=== PATIENT | male | born 1970 | race Caucasian/White ===

== ENCOUNTER 2021-03-11 22:35 | Inpatient (IN) | payer BC, SELFPAY ==
--- NOTE | ~2021-03-11 | XR_ITS ---
EXAMINATION: XR chest 2V EXAM DATE: 03/11/2021 22:59 INDICATION: Midsternal chest pain. TECHNIQUE: Frontal and lateral projections of the chest obtained and reviewed. There is no prior jerzy dy for comparison. FINDINGS: The lungs are clear. There are no pleural effusions. The cardiomediastinal silhouette is within normal limits. There is no pneumothorax suspected. The bones and soft tissues are unremarkab le. IMPRESSION: No acute cardiopulmonary findings. Reviewed, dictated and finalized at location G.
--- NOTE | 2021-03-11 22:41 | ECG_ITS ---
Measurements Intervals [place] Rate: 109 P: 23 CA: 158 QRS: 39 QRSD: 90 T: 29 QT: 319 QTc: 430 Interpretive Statements SINUS TACHYCARDIA CANNOT RULE OUT SEPTAL INFARCT, AGE INDETERMINATE ABNORMAL ECG Electronically Signed On 03-12-2021 7:03:28 CDT by Edison Valladares D.O.
[2021-03-11 22:49] VITALS: BP 187/101; PULSE 107; RESP 20; TEMP 36.6; O2SAT 99
--- NOTE | 2021-03-11 22:55 | PC.NURSE ---
Patient taken to xray.
[2021-03-11 23:09] LABS: Basophils Absolute Auto 0.1 K/mm3 (0.0-0.1); Basophils Percent Auto 0.9 % (0.2-1.2); Eosinophils Absolute Auto 0.2 K/mm3 (0-0.3); Eosinophils Percent Auto 2.4 % (0-4.4); Hematocrit 46.4 % (42.0-52.0); Hemoglobin 15.7 g/dL (14.0-18.0); Immature Granulocyte Absolute 0.05 K/mm3 (0.00-0.031); Immature Granulocyte Percent A 0.6 % (0-0.5); Lymphocytes Percent Auto 27.6 % (18.3-44.2); Mean Corpuscular HGB Conc 33.8 g/dl (32-36); Mean Corpuscular Hemoglobin 29.9 pg (26-34); Mean Corpuscular Volume 88.4 fl (80-100); Mean Platelet Volume 8.9 fl (7.4-10.4); Monocytes Absolute Auto 0.7 K/mm3 (0.1-0.6); Monocytes Percent Auto 9.1 % (2.6-8.5); Neutrophils Absolute Auto 4.7 K/mm3 (1.3-6.7); Neutrophils Percent Auto 59.4 % (45.5-73.1); Platelet Count Result 306 k/mm3 (150-375); Red Blood Count 5.25 M/mm3 (4.6-6.20); Red Cell Distribution Width 12.7 % (11.5-14.5)
[2021-03-11 23:18] LABS: Anion Gap 13 mmol/L (8-16); Blood Urea Nitrogen 16 mg/dL (9-20); Calcium 9.8 mg/dL (8.4-10.2); Carbon Dioxide 24 mmol/L (22-30); Chloride 99 mmol/L (98-107); Estimated CRCL calculation 97 ml/min; Estimated Glomerular Filt Rate > 60; Glucose 396 mg/dL (65-110); Potassium 4.1 mmol/L (3.4-5.0); Sodium 136 mmol/L (137-145)
[2021-03-11 23:21] LABS: INR 0.9; Partial Thromboplastin Time 22.2 SECONDS (22.3-36.8); Prothrombin Time 11.6 Seconds (11.1-14.7)
[2021-03-11 23:30] LABS: Troponin I 0.017 ng/mL (0.000-0.034)
[2021-03-12] VITALS (21 sets, daily range): BP systolic 119–170; BP diastolic 74–101; PULSE 74–121; RESP 12–21; TEMP 35.9–36.9; O2SAT 94–99
[2021-03-12 03:23] LABS: Troponin I 0.102 ng/mL (0.000-0.034)
--- NOTE | 2021-03-12 04:01 | ED.CHESTPAIN ---
HPI - Chest Pain General Chief Complaint: Chest Pain Stated Complaint: chest pain since yesterday Time Seen by Provider: 03/12/21 03:27 Source: patient and RN notes reviewed Mode of arrival: ambulatory Limitations: no limitations History of Present Illness HPI narrative: This is a 51 year old male with history DM who presents for evaluation of midsternal chest pain. Patient developed pain while he was mowing his lawn. He states his pain subsided once he went inside to rest. He has continued to have intermittent pain throughout Sunday and Sunday morning. His pain is worse with exertion. He reports he currently has 5/10 pain currently. His pain does not radiate. He denies nausea, vomiting, dizziness or shortness of breath. He reports previous history of diabetes but he has not taken medication in years. He has not seen a primary care physician in years. Related Data Home Medications Medication Instructions Recorded Confirmed No Home Medications 03/11/21 03/11/21 Allergies Allergy/AdvReac Type Severity Reaction Status Date / Time No Known Allergies Allergy Mild Verified 03/12/21 04:30 Review of Systems Review of Systems: All systems reviewed & are unremarkable except as noted in HPI and below PMFSH Past Medical History Medical History (Updated 03/12/21 @ 07:21 by Dianne Lion MD) Diabetes mellitus Surgical History Surgical History (Updated 03/12/21 @ 04:04 by Dianne Lion MD) No pertinent past surgical history Family History Family History (Updated 04/16/14 @ 07:13 by DOCTOR UNKNOWN) Father Hypertension Mother Family history of malignant neoplasm Social History Social History Smoking status: Never smoker Alcohol intake: current Exam Const: General: no acute distress and alert Orientation/consciousness: patient oriented x3 Eyes: EOM: EOMs intact bilaterally Resp: Effort & Inspection: normal respiratory effort and no retractions Auscultation: clear to auscultation bilaterally Cardio: Rate: regular rate Rhythm: regular rhythm Heart sounds: no murmurs GI: GI Palp: Yes Soft to palpation, No Tenderness to palpation present (GI) and No Guarding due to palpation present (GI) Auscultation: normal bowel sounds Skin: General skin exam: normal color Rashes: no rashes Neuro: General: patient oriented x3, moves all extremities and CN's II-XI intact bilaterally Psych: Mental Status: mental status grossly normal Affect: normal affect Course Reevaluation(s) Reevaluation #1: I discussed case with Dr. Spears. She accepts care to IMU. Will repeat glucose. She agrees with starting maintenance IVF . Patient may be dehydrated from his hyperglycemia. BS has decreased since arrival to [facility]. Date: 03/12/21 Time: 05:12 Consultations Consultation #1: I spoke with Dr. Lema and he agrees to consult. He recommends starting on heparin. Given metoprolol 25 mg now and then q 6hours with daily aspirin 81 mg. Date: 03/12/21 Time: 05:00 Vital Signs Vital signs: Vital Signs Temperature 97.8 F 03/11/21 22:49 Pulse Rate 107 H 03/11/21 22:49 Respiratory Rate 20 03/11/21 22:49 Blood Pressure 187/101 H 03/11/21 22:49 Pulse Oximetry 99 03/11/21 22:49 Temperature 96.7 F L 03/12/21 06:50 Pulse Rate 85 03/12/21 06:50 Respiratory Rate 20 03/12/21 06:50 Blood Pressure 156/84 H 03/12/21 06:50 Pulse Oximetry 99 03/12/21 06:50 MDM - Chest Pain Lab Data Attestation: I reviewed the patient's lab results. Result diagrams: 03/11/21 22:48 03/11/21 22:48 Labs: Lab Results 03/11/21 03/11/21 03/11/21 Range/Units 22:48 22:48 22:48 WBC 8.0 (4.5-10.0) K/mm3 RBC 5.25 (4.6-6.20) M/mm3 Hgb 15.7 (14.0-18.0) g/dL Hct 46.4 (42.0-52.0) % MCV 88.4 (80-100) fl MCH 29.9 (26-34) pg MCHC 33.8 (32-36) g/dl RDW 12.7 (11.5-14.5) % Plt Count 306 (150-375) k/mm3 MPV 8.9 (
[2021-03-12] MEDS: ASPIRIN 81 MG CHEWABLE TABLET 324 MG PO (04:31)
[2021-03-12] MEDS: NITROGLYCERIN SL 0.4 MG TABLET SUBLINGUAL (04:33)
--- NOTE | 2021-03-12 04:38 | PC.NURSE ---
2nd dose 0.4mg SL nitro held at this time. Pt rates pain 0/10. BP 144/99.
--- NOTE | 2021-03-12 04:41 | PC.NURSE ---
Pt c/o 2/10 chest pain and racing heart. 2nd dose 0.4mg SL nitro given at this time.
--- NOTE | 2021-03-12 04:48 | PC.NURSE ---
3rd dose SL nitro given at this time. Pt rtes CP 08/29. VSS.
[2021-03-12] MEDS: METOPROLOL TARTRATE 50 MG TAB 25 MG PO (05:20)
[2021-03-12] MEDS: HEPARIN SODIUM 5,000 UNITS/ML VIAL 4000 UNITS IV PUSH ×3 (05:26→20:47)
[2021-03-12] MEDS: HEPARIN SOD/D5W 100 UNITS/ML 25,000 UNITS/250 ML BAG 10 UNITS IV CONT (05:26)
[2021-03-12 05:44] LABS: Glucose Point of Care 266 mg/dl (65-105)
--- NOTE | 2021-03-12 06:47 | ADMGEN ---
This patient, Ja Mendoza, was admitted to IMU Room 201-01 at 0647. Patient/family oriented to hospital policies and general routines including ID bracelet, bed and alarms, visiting hours, pain management, procedures, bathroom and other care routines, personal items, smoking policy, room service/diet, and visiting hours. Information on how to activate the Rapid Response Team has been discussed. Patient/Family are encouraged to report perceived risks to care and to ask questions if they do not understand what they are told or what they should do.
[2021-03-12 07:34] LABS: Hemoglobin A1C 11.2 % (<5.7)
[2021-03-12 07:35] LABS: Glucose Point of Care 248 mg/dl (65-105)
[2021-03-12 07:45] LABS: Cholesterol 250 mg/dL (0-200); HDL Direct 52 mg/dL; Triglycerides 116 mg/dL (<150)
[2021-03-12 07:56] LABS: LDL Cholesterol Direct 161 mg/dL
[2021-03-12 08:06] LABS: Troponin I 0.246 ng/mL (0.000-0.034)
[2021-03-12] MEDS: ASPIRIN 81 MG CHEWABLE TABLET PO (08:12)
[2021-03-12] MEDS: METOPROLOL TARTRATE 25 MG TABLET PO ×4 (08:12→23:51)
[2021-03-12] MEDS: NITROGLYCERIN OINTMENT 1 INCH DOSE TRANSDERM ×4 (08:13→23:51)
[2021-03-12] MEDS: SODIUM CHLORIDE 0.9% IV 1,000 ML 125 ML IV CONT ×3 (08:14→23:52)
--- NOTE | 2021-03-12 08:48 | PM.IMHP ---
H&P: HPI History of Present Illness Date/Time: 03/12/21 08:48 Chief Complaint: Mr. Mendoza is a 51 year old man with a past medical history significant for DM type II and former smoker who presented to the ED last evening with a complaint of intermitent substernal chest pain since . 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 He tells me his symptoms improved with rest. He denied any similar episodes in the past. He tells me he experienced the same feeling yesterday while he was working if he was outside. He also reports some diaphoresis while in the ED. He denied any CHANDLER, dizziness, cough, SOB, palpitations or radiation. He has not seen his PCP in a couple of years due to non adherence with appointments. He was on metformin in the past but hasn't taken any in more than one year. During interview and exam he denied any CHANDLER, dizziness, CP, SOB, N/V or abdominal pain. ED evaluation included and revealed: Initial troponin was not elevated, however repeat showed elevated troponin at 0.246; BP elevated at 187/100. ECG showed ST; CXR with no acute disease. BG 396. He was give full dose ASA, NTG, metoprolol and heparin drip was initiated. Cardiology was consulted by the ED. He has been admitted for further evaluation and treatment. Review of Systems Review of Systems: All systems reviewed & are unremarkable except as noted in HPI and below [facility] Past Medical History Medical History Diabetes mellitus Surgical History Surgical History No pertinent past surgical history Family History Family History Father Hypertension Mother Family history of malignant neoplasm Social History Social History Smoking status: Former smoker Additional smoking assessment comments: 2 packs per week Alcohol intake: never Substance use: never Spiritual care concerns: No Meds Home Medications and Allergies Home Medications Medication Instructions Recorded Confirmed Type No Home Medications 03/11/21 03/11/21 History Allergies Allergy/AdvReac Type Severity Reaction Status Date / Time No Known Allergies Allergy Mild Verified 03/12/21 08:29 Vital Signs Vital Signs - 24 hr 03/11/21 22:49 03/12/21 02:36 03/12/21 03:30 Temperature 36.6 C 36.7 C Pulse Rate 107 H 105 H 88 Respiratory Rate 20 18 15 Blood Pressure 187/101 H 170/99 H 143/100 H Pulse Oximetry 99 99 98 03/12/21 04:32 03/12/21 04:39 03/12/21 04:48 Temperature Pulse Rate 114 H 121 H 116 H Respiratory Rate 20 21 H 16 Blood Pressure 159/101 H 144/99 H 140/94 H Pulse Oximetry 99 98 03/12/21 04:56 03/12/21 05:20 03/12/21 06:12 Temperature Pulse Rate 121 H 101 H 92 Respiratory Rate 19 19 Blood Pressure 139/89 137/80 Pulse Oximetry 97 03/12/21 06:40 03/12/21 06:50 03/12/21 08:00 Temperature 35.9 C L 36.1 C L Pulse Rate 85 85 89 Respiratory Rate 12 20 18 Blood Pressure 119/74 156/84 H 147/90 H Pulse Oximetry 95 99 97 03/12/21 08:12 Temperature Pulse Rate 94 Respiratory Rate Blood Pressure Pulse Oximetry Exam Const: General: no acute distress, alert and awake Orientation/consciousness: patient oriented x3 HENMT: Head: normocephalic and atraumatic Ears: hearing grossly normal bilaterally and external ears normal Face and sinus: face symmetric Mouth: Yes Normal oral and palatal mucosa present Eyes: Pupils: Equal, round and reactive pupils present EOM: EOMs intact bilaterally Neck: Neck: full ROM, trachea midline and no JVD Thyroid: thyroid normal Chest: Chest palpation & inspection: normal inspection of the chest Resp: Effort & Inspection: normal respiratory effort Auscultation: clear to auscultation bilaterally Cardio: Jugular v
--- NOTE | 2021-03-12 10:54 | PM.CNCAR ---
Assessment and Plan Assessment and plan (1) Non-ST elevation [place] (NSTEMI): Code(s): I21.4 - Non-ST elevation (NSTEMI) myocardial infarction Status: Acute Assessment and Plan: Patient is a 51-year-old white man with history of hypertension, diabetes mellitus type 2, distant tobacco dependence (2 packs per week), medical noncompliance, who was seen in cardiac consultation for chief complaint of chest pain. - patient reports a 2 day history of intermittent exertional chest pain, relieved with rest and relieved with nitroglycerin. Chest pain currently resolved. - He has been noncompliant with management his diabetes mellitus and hypertension and presents with marked hyperglycemia and with hypertensive urgency. - Peak troponin I so far is 0.513 and will continue to trend. - EKG without evidence of acute injury. - Continue aspirin. - continue intravenous heparin for at least 48 hours or until left heart catheterization pending clinical course, with consideration of Plavix following left heart catheterization results. - improved blood pressure and heart rate control with addition of metoprolol tartrate 25 mg po q.6 hours. - Began rosuvastatin 40 mg nightly for LDL elevated at 161 this admission, in the setting of his diabetes mellitus and non ST elevation myocardial infarction. - Obtain echo to evaluate cardiac structure and function. -given his poorly controlled diabetes mellitus and poorly controlled hypertension, with significant troponin elevation this admission, in the context of exertional chest pain relieved with rest and with nitroglycerin, anticipate need for left heart catheterization for definitive evaluation for coronary artery disease this admission, pending continued improvement in his glucose and overall clinical status. (2) Hypertension: Code(s): I10 - Essential (primary) hypertension Status: Acute Assessment and Plan: - he had hypertensive urgency on presentation with a presenting blood pressure 187/101, with subsequent improvement to mild elevation. - improved blood pressure and heart rate control with addition of metoprolol tartrate 25 mg po q.6 hours. - TSH normal this admission. (3) Hyperglycemia: Code(s): R73.9 - Hyperglycemia, unspecified Status: Acute Assessment and Plan: -He has significant hyperglycemia noted this admission in the setting of noncompliance with his diabetic regimen. -presenting glucose was 396 and hemoglobin A1c 11.2%. -careful monitoring and management his diabetes mellitus as per primary service. (4) Hyperlipidemia associated with type 2 diabetes mellitus: Code(s): E11.69 - Type 2 diabetes mellitus with other specified complication; E78.5 - Hyperlipidemia, unspecified Status: Acute Assessment and Plan: - Began rosuvastatin 40 mg nightly for LDL elevated at 161 this admission, in the setting of his diabetes mellitus and non ST elevation myocardial infarction. History of Present Illness History of Present Illness Consult date/time: 03/12/21 10:54 Patient is a 51-year-old white man with history of hypertension, diabetes mellitus type 2, distant tobacco dependence (2 packs per week), medical noncompliance, who was seen in cardiac consultation for chief complaint of chest pain. Patient reports onset of exertional chest pain for 2 days intermittent up to 30 minutes at a time. Chest discomfort initially began two days prior to admission when he was mowing his lawn and improved with rest. He had recurrence of the chest discomfort on the day prior to admission when he was active at work, with chest pain also relieved at rest. He reports his chest discomfort was a tightness in the midsternum without radiation with some associated mild dyspnea and diaphoresis but no nausea. In the Emergency department, his chest pain improved following 3 nitroglycerin tablets sublingually. Patient denies any chest pain at present. Denies any edema, orthopnea
--- NOTE | 2021-03-12 11:09 | ECG_ITS ---
Measurements Intervals [place] Rate: 84 P: 48 ND: 157 QRS: 59 QRSD: 94 T: 67 QT: 361 QTc: 429 Interpretive Statements SINUS RHYTHM BASELINE WANDER- V2, V4 NORMAL ECG Electronically Signed On 03-12-2021 17:05:17 CDT by Edison Valladares D.O.
--- NOTE | 2021-03-12 11:19 | ECHO_ITS ---
Patient Info Name: Ja Mendoza Age: 51 years : 1970 Gender: Male Ht: 69 in Wt: 250 lbs BSA: 2.40 m2 HR: 83 bpm BP: 147 / 90 mmHg Technical Quality: Fair Exam Date: 03/12/2021 1:43 PM Exam Location: [facility] Patient Status: Inpatient Admit Date: 03/12/2021 Staff Ordering Physician: Anival Lema MD Signalling And Communications Engineer: Aleksandra Gil RDCS Attending Provider: Mar Spears DO Referring Physician: Pita ESPINAL; Exam Type: CA echo dop color flow w con Study Info Complete two-dimensional, color flow and Doppler transthoracic echocardiogram is performed with contrast to opacify the left ventricle and to improve the deliniation of the left ventricle endocardial borders. Contrast/Agitated Saline Contrast/Ag. Saline: Definity Amount: 4.00 ml Summary 1. Technically difficult study with limited views. 2. Left ventricular chamber dimension is normal. 3. Left ventricular wall thickness is normal. 4. Left ventricular systolic function is normal with an ejection fraction by Biplane Method of Discs of 62 %. 5. Mild hypokinesis of the apical anterior left ventricular wall(s). 6. Right ventricular systolic function is normal. Recommendations * No prior study available for comparison. Left Ventricle Left ventricular chamber dimension is normal. Left ventricular wall thickness is normal. Left ventricular systolic function is normal with an ejection fraction by Biplane Method of Discs of 62 %. Normal diastolic function for age. Mild hypokinesis of the apical anterior left ventricular wall(s). Right Ventricle Right ventricular chamber dimension is normal. Right ventricular systolic function is normal. Ventricular Septum Intact interventricular septum visualized by 2D imaging. Left Atria Left atrial chamber dimension is normal. Right Atria Right atrial chamber dimension is normal. Aortic Valve Aortic valve is not well visualized. There is no aortic valve stenosis. There is no aortic valve regurgitation. The aortic valve is probable trileaflet. Pulmonic Valve Pulmonary valve is not well visualized. There is trace pulmonic regurgitation. There is no pulmonic valve stenosis. Mitral Valve There is mild mitral valve regurgitation. There is no mitral valve stenosis. Mitral valve is structurally and functionally normal to two-dimensional, color flow Doppler and Doppler interrogation. Tricuspid Valve The tricuspid valve is not well visualized. There is mild tricuspid valve regurgitation. There is no significant tricuspid valve stenosis. Pericardium/Pleural There is no pericardial effusion. Inferior Vena Cava Inferior vena cava is not well visualized. Aorta The aortic root size at the sinus of Valsalva is normal. Left Ventricular Outflow Tract Name Value Normal LVOT Doppler LVOT Peak Gradient 7 mmHg LVOT Mean Gradient 3 mmHg LVOT VTI 23.15 cm LVOT VTI/AV VTI Ratio 0.85 Pulmonic Valve Name Value Normal ----
[2021-03-12 11:56] LABS: Partial Thromboplastin Time 29.5 SECONDS (22.3-36.8)
[2021-03-12 12:12] LABS: Troponin I 0.513 ng/mL (0.000-0.034)
[2021-03-12 12:33] LABS: Glucose Point of Care 228 mg/dl (65-105)
[2021-03-12 12:43] LABS: Alanine Aminotransferase 35 U/L (4-50); Albumin Level 4.4 g/dL (3.5-5.1); Alkaline Phosphatase 74 U/L (38-126); Anion Gap 11 mmol/L (8-16); Aspartate Amino Transferase 27 U/L (17-59); Bilirubin,Total 0.7 mg/dL (0.2-1.3); Blood Urea Nitrogen 15 mg/dL (9-20); Calcium 9.6 mg/dL (8.4-10.2); Carbon Dioxide 25 mmol/L (22-30); Chloride 101 mmol/L (98-107); Estimated CRCL calculation 119 ml/min; Estimated Glomerular Filt Rate > 60; Glucose 241 mg/dL (65-110); Potassium 4.2 mmol/L (3.4-5.0); Sodium 137 mmol/L (137-145)
[2021-03-12] MEDS: INSULIN ASPART (*BKC) 100 UNITS/ML SUB-Q ×2 (13:03→17:21)
[2021-03-12] MEDS: ACETAMINOPHEN 325 MG TABLET 650 MG PO (17:02)
[2021-03-12 17:09] LABS: Glucose Point of Care 247 mg/dl (65-105)
[2021-03-12 18:31] LABS: Troponin I 0.528 ng/mL (0.000-0.034)
[2021-03-12 19:50] LABS: Partial Thromboplastin Time 39.5 SECONDS (22.3-36.8)
[2021-03-12 21:06] LABS: Glucose Point of Care 248 mg/dl (65-105)
[2021-03-12] MEDS: INSULIN GLARGINE (*BKC) 100 UNITS/ML 15 UNITS SUB-Q (22:39)
[2021-03-12] MEDS: ROSUVASTATIN 10 MG TABLET 40 MG PO (22:39)
[2021-03-12] MEDS: HEPARIN SOD/D5W 100 UNITS/ML 25,000 UNITS/250 ML BAG 18 UNITS IV CONT (23:53)
[2021-03-13] VITALS (21 sets, daily range): BP systolic 122–143; BP diastolic 74–89; PULSE 67–95; RESP 18–20; TEMP 35.9–36.7; O2SAT 96–99
[2021-03-13 00:56] LABS: Troponin I 0.463 ng/mL (0.000-0.034)
[2021-03-13 03:43] LABS: Basophils Percent Auto 0.5 % (0.2-1.2); Eosinophils Absolute Auto 0.2 K/mm3 (0-0.3); Eosinophils Percent Auto 2.5 % (0-4.4); Hematocrit 42.1 % (42.0-52.0); Hemoglobin 13.7 g/dL (14.0-18.0); Immature Granulocyte Absolute 0.05 K/mm3 (0.00-0.031); Immature Granulocyte Percent A 0.6 % (0-0.5); Lymphocytes Absolute Auto 2.84 K/mm3 (0.9-3.2); Lymphocytes Percent Auto 32.2 % (18.3-44.2); Mean Corpuscular HGB Conc 32.5 g/dl (32-36); Mean Corpuscular Hemoglobin 29.5 pg (26-34); Mean Corpuscular Volume 90.5 fl (80-100); Mean Platelet Volume 8.7 fl (7.4-10.4); Monocytes Absolute Auto 0.7 K/mm3 (0.1-0.6); Monocytes Percent Auto 8.2 % (2.6-8.5); Platelet Count Result 272 k/mm3 (150-375); Red Blood Count 4.65 M/mm3 (4.6-6.20); Red Cell Distribution Width 13.1 % (11.5-14.5); White Blood Count 8.8 K/mm3 (4.5-10.0)
[2021-03-13 03:53] LABS: Anion Gap 5 mmol/L (8-16); Blood Urea Nitrogen 15 mg/dL (9-20); Calcium 8.7 mg/dL (8.4-10.2); Carbon Dioxide 27 mmol/L (22-30); Chloride 104 mmol/L (98-107); Estimated CRCL calculation 107 ml/min; Estimated Glomerular Filt Rate > 60; Glucose 252 mg/dL (65-110); Magnesium 1.9 mg/dL (1.6-2.3); Potassium 4.6 mmol/L (3.4-5.0); Sodium 136 mmol/L (137-145)
[2021-03-13 04:13] LABS: Troponin I 0.457 ng/mL (0.000-0.034)
[2021-03-13] MEDS: METOPROLOL TARTRATE 25 MG TABLET PO ×4 (06:30→23:30)
[2021-03-13] MEDS: NITROGLYCERIN OINTMENT 1 INCH DOSE TRANSDERM ×4 (06:31→23:31)
[2021-03-13] MEDS: SODIUM CHLORIDE 0.9% IV 1,000 ML 125 ML IV CONT (07:42)
[2021-03-13 08:16] LABS: Glucose Point of Care 217 mg/dl (65-105)
[2021-03-13] MEDS: INSULIN ASPART (*BKC) 100 UNITS/ML SUB-Q ×3 (08:32→17:38)
[2021-03-13] MEDS: ASPIRIN 81 MG CHEWABLE TABLET PO (08:36)
--- NOTE | 2021-03-13 08:53 | WPDPN ---
Progress Note: A&P Assessment and Plan (1) Non-ST elevation [place] (NSTEMI): Code(s): I21.4 - Non-ST elevation (NSTEMI) myocardial infarction Status: Acute Assessment and Plan: elevated troponin at 0.513>0.528>0.457 Heparin gtt until cardiac catheterization today with will consider Plavix following left cardiac catheterization Cardiology consulted, recommendations appreciated Continue ASA, BB, NTG start rosuvastatin 40 mg daily LDL at 161 Tele monitoring (2) Hypertension: Code(s): I10 - Essential (primary) hypertension Status: Acute Assessment and Plan: Improved patient noncompliance continue metoprolol and nitro cardiology consulted vital signs is ordered will adjust medication as needed (3) Hyperglycemia: Code(s): R73.9 - Hyperglycemia, unspecified Status: Acute Assessment and Plan: Hx of DM type II blood sugar less than 300 patient noncompliance Hgb A1c 11.2 continue SSI, accuchecks and Accu-Chek, increase sliding scale from moderate to diabetic Education will adjust medication as needed continue diabetic diet Subjective Date/time seen: 03/13/21 08:53 patient night was uneventful. Patient was able to tolerate meals and slept well overnight and denies pain. The patient denies SOB, CP, palpitation, extremity numbness, lightheadedness, dizziness, constipation, diarrhea, chills, or fever. Review of Systems Review of Systems: Narrative: A 14 organ system Review of Systems was performed and pertinent positives included in the HPI, otherwise remaining ROS is negative. All systems reviewed & are unremarkable except as noted in HPI and below Exam Narrative: Exam Narrative: GENERAL: This is a well-nourished, well-developed patient, in no apparent distress. HEAD: normocephalic, atraumatic. EYES: PERRL. Sclera clear/white. Vision is grossly intact. EARS: External ears normal, auditory canals clear and without drainage, TMs normal without perforation. Hearing grossly intact. NOSE: External nose normal with no obvious nasal discharge, nares without redness, no rhinorrhea. THROAT: Mucous membranes moist, posterior pharynx clear. NECK: Neck supple, non-tender without lymphadenopathy, masses or thyromegaly. CARDIOVASCULAR: Regular rate and rhythm without murmurs, gallops, or rubs. RESPIRATORY: Clear to auscultation. Breath sounds equal bilaterally. No wheezes, rales, or rhonchi. GASTROINTESTINAL: Abdomen soft, non-tender, nondistended. Bowel sounds are active. No hepato-splenomegaly, or palpable masses. No guarding. SKIN: warm, intact with no suspicious lesions or rash, good texture and turgor. NEURO: awake, alert, and oriented to person, place and time. There were no obvious focal neurologic abnormalities. Steady gait EXTREMITIES: Normal range of motion. No edema. No calf tenderness. Negative Homans sign bilaterally. BACK: Nontender without deformity or crepitance. No flank tenderness. Objective Data Vital Signs Vital Signs: Vital Signs - 24 hr 03/12/21 12:00 03/12/21 13:06 03/12/21 14:00 Temperature 98.1 F Pulse Rate 80 91 82 Respiratory Rate 18 Blood Pressure 136/88 Pulse Oximetry 95 03/12/21 16:00 03/12/21 17:22 03/12/21 18:00 Temperature 98.4 F Pulse Rate 74 78 83 Respiratory Rate 20 Blood Pressure 133/90 Pulse Oximetry 94 03/12/21 20:00 03/12/21 22:00 03/12/21 23:51 Temperature 97.4 F L Pulse Rate 77 74 77 Respiratory Rate 20 Blood Pressure 142/91 H Pulse Oximetry 98 03/13/21 00:00 03/13/21 02:00 03/13/21 04:00 Temperature 97.1 F L 97.4 F L Pulse Rate 79 70 67 Respiratory Rate 20 20 Blood Pressure 122/75 127/77 Pulse Oximetry 98 96 03/13/21 06:00 03/13/21 06:30 03/13/21 07:19 Temperature 97.6 F Pulse Rate 69 88 74 Respiratory Rate 20 Blood Pressure 130/74 Pulse Oximetry 99 Intake/Output Intake/Output: Intake & Output
[2021-03-13 10:02] LABS: Partial Thromboplastin Time 59.8 SECONDS (22.3-36.8)
[2021-03-13] MEDS: HEPARIN SODIUM 5,000 UNITS/ML VIAL 3500 UNITS IV PUSH ×2 (10:15→17:39)
[2021-03-13 11:52] LABS: Glucose Point of Care 222 mg/dl (65-105)
--- NOTE | 2021-03-13 12:14 | PM.PNCARD ---
Progress Note: A&P Assessment and Plan (1) Non-ST elevation [place] (NSTEMI): Code(s): I21.4 - Non-ST elevation (NSTEMI) myocardial infarction Status: Acute Assessment and Plan: Patient is a 51-year-old white man with history of hypertension, diabetes mellitus type 2, distant tobacco dependence (2 packs per week), medical noncompliance, who was seen in cardiac consultation for chief complaint of chest pain. - patient reports a 2 day history of intermittent exertional chest pain, relieved with rest and relieved with nitroglycerin. Chest pain currently resolved. - He has been noncompliant with management his diabetes mellitus and hypertension and presents with marked hyperglycemia and with hypertensive urgency. - Peak troponin I was 0.528. - EKG without evidence of acute injury. - Continue aspirin. - Given occasional chest pain with minimal activity lasting 1 minutes or less, continue intravenous heparin until left heart catheterization 03/14/21 at approximately 2:[address] Kameron Dial, with consideration of Plavix following left heart catheterization results. - improved blood pressure and heart rate control with addition of metoprolol tartrate 25 mg po q.6 hours. - Began rosuvastatin 40 mg nightly for LDL elevated at 161 this admission, in the setting of his diabetes mellitus and non ST elevation myocardial infarction. - Obtained echo 03/13/21: 1. Technically difficult study with limited views. 2. Left ventricular chamber dimension is normal. 3. Left ventricular wall thickness is normal. 4. Left ventricular systolic function is normal with an ejection fraction by Biplane Method of Discs of 62 %. 5. Mild hypokinesis of the apical anterior left ventricular wall(s). 6. Right ventricular systolic function is normal. -given his poorly controlled diabetes mellitus and poorly controlled hypertension, with significant troponin elevation to 0.528 this admission and mild hypokinesis of the apical anterior left ventricular wall on echo, in the context of exertional chest pain relieved with rest and with nitroglycerin, scheduled left heart catheterization for definitive evaluation for coronary artery disease for 03/14/21 at approximately [address] Kameron Dawson. (2) Hypertension: Code(s): I10 - Essential (primary) hypertension Status: Acute Assessment and Plan: - he had hypertensive urgency on presentation with a presenting blood pressure 187/101, with subsequent improvement to occasional mild elevation. - improved blood pressure and heart rate control with addition of metoprolol tartrate 25 mg po q.6 hours. - TSH normal this admission. (3) Hyperglycemia: Code(s): R73.9 - Hyperglycemia, unspecified Status: Acute Assessment and Plan: -He has significant hyperglycemia noted this admission in the setting of noncompliance with his diabetic regimen. -presenting glucose was 396 and hemoglobin A1c 11.2%. -careful monitoring and management his diabetes mellitus as per primary service. -glucose levels improving. (4) Hyperlipidemia associated with type 2 diabetes mellitus: Code(s): E11.69 - Type 2 diabetes mellitus with other specified complication; E78.5 - Hyperlipidemia, unspecified Status: Acute Assessment and Plan: - Began rosuvastatin 40 mg nightly for LDL elevated at 161 this admission, in the setting of his diabetes mellitus and non ST elevation myocardial infarction. Subjective Date/time seen: 03/13/21 12:14 Patient reports feeling better overall. He had an episode of mild chest discomfort lasting 1 minute at 7:30 p.m. on 03/13/2021 with minimal activity. He reports with minimal activity, he had chest pain at 11:30 a.m. on 03/14/2021 for 1 minute. He denies chest pain at present. He denies dyspnea. He denies dizziness. Patient was seen and examined, chart reviewed, case discussed with nurse and patient's . Exam Narrative: Exam Narrative:
[2021-03-13] MEDS: ACETAMINOPHEN 325 MG TABLET 650 MG PO (14:45)
[2021-03-13] MEDS: HEPARIN SOD/D5W 100 UNITS/ML 25,000 UNITS/250 ML BAG 20 UNITS IV CONT (14:46)
--- NOTE | 2021-03-13 14:48 | ECG_ITS ---
Measurements Intervals Challenge Rate: 77 P: 41 MD: 161 QRS: 44 QRSD: 97 T: 106 QT: 391 QTc: 445 Interpretive Statements SINUS RHYTHM NONSPECIFIC T-WAVE ABNORMALITY- ANT/HIGH LAT LEADS BORDERLINE ECG Electronically Signed On 03-13-2021 16:27:12 CDT by Edison Valladares D.O.
[2021-03-13 16:42] LABS: Partial Thromboplastin Time 63.2 SECONDS (22.3-36.8)
[2021-03-13 16:51] LABS: Glucose Point of Care 227 mg/dl (65-105)
[2021-03-13 16:56] LABS: Troponin I 0.314 ng/mL (0.000-0.034)
[2021-03-13 20:11] LABS: Glucose Point of Care 220 mg/dl (65-105)
[2021-03-13] MEDS: INSULIN GLARGINE (*BKC) 100 UNITS/ML 15 UNITS SUB-Q (21:08)
[2021-03-13] MEDS: ROSUVASTATIN 10 MG TABLET 40 MG PO (21:08)
[2021-03-13 23:55] LABS: Partial Thromboplastin Time 106.3 SECONDS (22.3-36.8)
[2021-03-14] VITALS (30 sets, daily range): BP systolic 129–173; BP diastolic 84–105; PULSE 69–100; RESP 14–20; TEMP 36.3–37; O2SAT 95–99
[2021-03-14] MEDS: SODIUM CHLORIDE 0.9% IV 500 ML 100 ML IV CONT (04:25)
[2021-03-14] MEDS: HEPARIN SOD/D5W 100 UNITS/ML 25,000 UNITS/250 ML BAG 20 UNITS IV CONT (05:44)
[2021-03-14] MEDS: METOPROLOL TARTRATE 25 MG TABLET PO ×3 (05:45→21:25)
[2021-03-14] MEDS: NITROGLYCERIN OINTMENT 1 INCH DOSE TRANSDERM ×3 (05:46→19:00)
[2021-03-14 06:50] LABS: Basophils Percent Auto 0.5 % (0.2-1.2); Eosinophils Absolute Auto 0.2 K/mm3 (0-0.3); Eosinophils Percent Auto 3.2 % (0-4.4); Hematocrit 41.3 % (42.0-52.0); Immature Granulocyte Absolute 0.08 K/mm3 (0.00-0.031); Immature Granulocyte Percent A 1.1 % (0-0.5); Lymphocytes Percent Auto 26.9 % (18.3-44.2); Mean Corpuscular HGB Conc 33.9 g/dl (32-36); Mean Corpuscular Hemoglobin 29.7 pg (26-34); Mean Corpuscular Volume 87.7 fl (80-100); Mean Platelet Volume 9.1 fl (7.4-10.4); Monocytes Absolute Auto 0.6 K/mm3 (0.1-0.6); Monocytes Percent Auto 8.5 % (2.6-8.5); Neutrophils Absolute Auto 4.5 K/mm3 (1.3-6.7); Neutrophils Percent Auto 59.8 % (45.5-73.1); Platelet Count Result 268 k/mm3 (150-375); Red Blood Count 4.71 M/mm3 (4.6-6.20); Red Cell Distribution Width 12.6 % (11.5-14.5); White Blood Count 7.4 K/mm3 (4.5-10.0)
[2021-03-14 06:59] LABS: INR 0.9; Prothrombin Time 12.5 Seconds (11.1-14.7)
[2021-03-14 07:01] LABS: Partial Thromboplastin Time 93.2 SECONDS (22.3-36.8)
[2021-03-14 07:02] LABS: Alanine Aminotransferase 29 U/L (4-50); Albumin Level 3.7 g/dL (3.5-5.1); Alkaline Phosphatase 66 U/L (38-126); Anion Gap 7 mmol/L (8-16); Aspartate Amino Transferase 25 U/L (17-59); Bilirubin,Total 0.6 mg/dL (0.2-1.3); Blood Urea Nitrogen 9 mg/dL (9-20); Calcium 8.6 mg/dL (8.4-10.2); Carbon Dioxide 24 mmol/L (22-30); Chloride 105 mmol/L (98-107); Estimated CRCL calculation 119 ml/min; Estimated Glomerular Filt Rate > 60; Glucose 214 mg/dL (65-110); Sodium 136 mmol/L (137-145)
[2021-03-14] MEDS: ASPIRIN 81 MG CHEWABLE TABLET PO (08:46)
[2021-03-14 11:35] LABS: Glucose Point of Care 205 mg/dl (65-105)
--- NOTE | 2021-03-14 12:39 | PM.IMPN ---
Progress Note: A&P Assessment and Plan (1) Non-ST elevation IL (NSTEMI): Code(s): I21.4 - Non-ST elevation (NSTEMI) myocardial infarction Status: Acute Assessment and Plan: elevated troponin at 0.513>0.528>0.457 Heparin gtt until cardiac catheterization today with will consider Plavix following left cardiac catheterization Cardiology consulted, recommendations appreciated Continue ASA, BB, NTG start rosuvastatin 40 mg daily LDL at 161 Tele monitoring (2) Hypertension: Code(s): I10 - Essential (primary) hypertension Status: Acute Assessment and Plan: Improved patient noncompliance continue metoprolol and nitro cardiology consulted vital signs is ordered will adjust medication as needed (3) Hyperglycemia: Code(s): R73.9 - Hyperglycemia, unspecified Status: Acute Assessment and Plan: Hx of DM type II glucose 214 n labs patient noncompliance Hgb A1c 11.2 continue SSI, AccuCheck, increase sliding scale from moderate to high diabetic Education will adjust medication as needed continue diabetic diet Time Spent With Patient Time with patient: Greater than 35 minutes Subjective Date/time seen: 03/14/21 12:20 Interval history: Patient is a 51 year old with diet controlled diabetes that present with chest pain. Today patient is waiting to go for a cardiac cath. He stated that they are supposed to be taking him around 2pm. He has no complaints, but stating that he gets a little short of breath with activity and has chest pressure. He has no other complaints at this time and denies chest pain, shortness of breath, nausea, vomiting, diarrhea, sweats, chills, fevers, diarrhea, or constipation. His was also present and questions were asked. All questions were answered to the best of my ability however, I did let the family know that Dr. Morris will take care of anything that would be considered serious up to and including stents or open heart surgery. Review of Systems Review of Systems: All systems reviewed & are unremarkable except as noted in HPI and below Exam Const: General: cooperative, healthy appearing, comfortable, no acute distress, well developed, alert, awake and Physically active Nutritional Appearance: obese and overweight Orientation/consciousness: oriented to person, oriented to place, oriented to time and patient oriented x3 HENMT: Head: normocephalic and atraumatic Ears: hearing grossly normal bilaterally and external ears normal Face and sinus: face symmetric Mouth: Yes Normal oral and palatal mucosa present Eyes: Pupils: Equal, round and reactive pupils present EOM: EOMs intact bilaterally Neck: Neck: full ROM, trachea midline and no JVD Thyroid: thyroid normal Chest: Chest palpation & inspection: normal inspection of the chest Resp: Effort & Inspection: normal respiratory effort Auscultation: clear to auscultation bilaterally Cardio: Jugular venous distension: no JVD Rate: regular rate Rhythm: regular rhythm Heart sounds: S1 normal heart sound present and S2 normal heart sound present Peripheral pulses: Peripheral pulses 2+ throughout GI: Inspection: normal to inspection GI Palp: Yes Soft to palpation and No Tenderness to palpation present (GI) Auscultation: normal bowel sounds : General: Yes no CVA tenderness Back/Spine/Pelvis: Back: no CVA tenderness Skin: General skin exam: normal color Rashes: no rashes Neuro: General: oriented to person, oriented to place, oriented to time, patient oriented x3, tone normal, moves all extremities, Normal light touch and pain sensation and CN's II-XI intact bilaterally Cranial nerves: Yes CN's II-XII intact bilaterally, Yes Equal, round and reactive pupils present and Yes Normal hearing present Speech: normal speech Gait exam (Neuro): Normal gait present Motor exam (neuro): 5/5 motor strength present throughout Psych: Appe
[2021-03-14 12:57] LABS: Partial Thromboplastin Time 64.7 SECONDS (22.3-36.8)
[2021-03-14] MEDS: HEPARIN SODIUM 5,000 UNITS/ML VIAL 3500 UNITS IV PUSH (13:09)
--- NOTE | 2021-03-14 14:59 | WPDMODSED ---
Moderate Sedation Note-Pt Data Patient Data Allergies Allergy/AdvReac Type Severity Reaction Status Date / Time No Known Allergies Allergy Mild Verified 03/12/21 08:29 Home Medications Medication Instructions Recorded Confirmed Type No Home Medications 03/11/21 03/11/21 History Current Medications: Active Medications Acetaminophen (Acetaminophen 325 Mg Tablet) 650 mg PO Q6H PRN PRN Reason: Mild Pain (1-3) or Fever Last Admin: 03/13/21 14:45 Dose: 650 mg Documented by: Al Hydrox/Mg Hydrox/Simethicone (Mag Hydrox/Al Hydrox/Simeth 30 Ml Udc) 30 ml PO Q6H PRN PRN Reason: Indigestion Aspirin (Aspirin 81 Mg Chewable Tablet) 81 mg PO DAILY@0800 MERLE Last Admin: 03/14/21 08:46 Dose: 81 mg Documented by: Dextrose (Dextrose 50% 25 Gm/50 Ml Syringe) 12.5 gm IV PUSH PRN PRN; Protocol PRN Reason: Hypoglycemia Glucagon (Glucagon For Inj 1 Mg Vial) 1 mg IM PRN PRN; Protocol PRN Reason: Hypoglycemia Glucose (Glucose Oral Gel 15 Gm Of Glucse In 37.5 Gm Tube) 15 gm PO PRN PRN; Protocol PRN Reason: Hypoglycemia Heparin Sodium (Porcine) (Heparin Sodium 5,000 Units/Ml Vial) 4,000 units IV PUSH PRN PRN PRN Reason: aPTT less than 55 seconds Last Admin: 03/12/21 20:47 Dose: 4,000 units Documented by: Heparin Sodium (Porcine) (Heparin Sodium 5,000 Units/Ml Vial) 3,500 units IV PUSH PRN PRN PRN Reason: aPTT 55 - 70 seconds Last Admin: 03/14/21 13:09 Dose: 3,500 units Documented by: Heparin Sodium/Dextrose (Heparin Sodium/D5w 100 Units/Ml) 25,000 units in 250 mls @ 22 mls/hr IV CONT .[id number] [facility]; Protocol Last Titration: 03/14/21 13:14 Dose: 2,200 units/hr, 22 mls/hr Documented by: Dextrose (Dextrose 5% 1,000 Ml) 1,000 mls @ 100 mls/hr IVPB PRN PRN; Protocol PRN Reason: Hypoglycemia Sodium Chloride (Normal Saline Iv) 500 mls @ 100 mls/hr IV CONT .Q5H [facility]LE Last Infusion: 03/14/21 09:25 Dose: Infused Documented by: Insulin Aspart (Insulin Aspart (*Bkc) 100 Units/Ml) 4 - 8 units SUB-Q TIDWM [facility]; Protocol Last Admin: 03/14/21 11:40 Dose: Not Given Documented by: Insulin Glargine (Insulin Glargine (*Bkc) 100 Units/Ml) 15 units SUB-Q HS [facility] Last Admin: 03/13/21 21:08 Dose: 15 units Documented by: Metoprolol Tartrate (Metoprolol Tartrate 25 Mg Tablet) 25 mg PO Q6HR [facility] Last Admin: 03/14/21 11:48 Dose: 25 mg Documented by: Nitroglycerin (Nitroglycerin Ointment 1 Inch Dose) 1 inch TRANSDERM Q6HR [facility] Last Admin: 03/14/21 11:48 Dose: 1 inch Documented by: Ondansetron HCl (Ondansetron Inj 4 Mg/2 Ml Vial) 4 mg IV PUSH Q4H PRN PRN Reason: Nausea Rosuvastatin Calcium (Rosuvastatin 10 Mg Tablet) 40 mg PO HS [facility] Last Admin: 03/13/21 21:08 Dose: 40 mg Documented by: Trazodone HCl (Trazodone Hcl 50 Mg Tablet) 50 mg PO HS PRN PRN Reason: Insomnia Sedation/Anesthesia: No previous sedation/anesthesia problems (including family history). [facility] Past Medical History Medical History Diabetes mellitus Surgical History Surgical History No pertinent past surgical history Family History Family History Father Hypertension Mother Family history of malignant neoplasm Social History Social History Smoking status: Former smoker Additional smoking assessment comments: 2 packs per week Alcohol intake: never Substance use: never Spiritual care concerns: No Mod Sed Physical Exam Physical Exam Pre Procedural Exam: Normal: Appearance, Eyes, Ears, Nose, Neck, Throat, Airway, Lungs, Heart Size, Heart Rate, Heart Rhythm, Neuro Exam, Abdomen, Liver, Kidneys, Spleen, Breasts, Genitalia, Extremities and Skin Hours since solid foods: 8 Hours since liquid intake: 8 Mallampati Classification: class II Internal Medicine - PN: Obj Da Vital Signs Vital Signs: Vital Signs - 24 hr 07/
--- NOTE | 2021-03-14 15:20 | PM.PNCARD ---
Progress Note: A&P Assessment and Plan (1) Non-ST elevation MA (NSTEMI): Code(s): I21.4 - Non-ST elevation (NSTEMI) myocardial infarction Status: Acute Assessment and Plan: Patient is a 51-year-old white man with history of hypertension, diabetes mellitus type 2, distant tobacco dependence (2 packs per week), medical noncompliance, who was seen in cardiac consultation for chief complaint of chest pain. - patient reports a 2 day history of intermittent exertional chest pain, relieved with rest and relieved with nitroglycerin. Chest pain currently resolved. - He has been noncompliant with management his diabetes mellitus and hypertension and presents with marked hyperglycemia and with hypertensive urgency. - Peak troponin I was 0.528. - EKG without evidence of acute injury. He underwent cardiac catheterization revealing subtotal LAD occlusion, with 99% disease involving the LAD and large septal branch, due to the bifurcation lesion and severe of the lesion he with better be served by [facility] or consider bypass surgery with GONZALES to LAD. With that will arrange for transfer to [place] per his request (2) Hypertension: Code(s): I10 - Essential (primary) hypertension Status: Acute Assessment and Plan: - he had hypertensive urgency on presentation with a presenting blood pressure 187/101, with subsequent improvement to occasional mild elevation. - improved blood pressure and heart rate control with addition of metoprolol tartrate 25 mg po q.6 hours. - TSH normal this admission. (3) Hyperglycemia: Code(s): R73.9 - Hyperglycemia, unspecified Status: Acute Assessment and Plan: -He has significant hyperglycemia noted this admission in the setting of noncompliance with his diabetic regimen. -presenting glucose was 396 and hemoglobin A1c 11.2%. -careful monitoring and management his diabetes mellitus as per primary service. -glucose levels improving. (4) Hyperlipidemia associated with type 2 diabetes mellitus: Code(s): E11.69 - Type 2 diabetes mellitus with other specified complication; E78.5 - Hyperlipidemia, unspecified Status: Acute Assessment and Plan: - Began rosuvastatin 40 mg nightly for LDL elevated at 161 this admission, in the setting of his diabetes mellitus and non ST elevation myocardial infarction. With bifurcation lesion in the LAD, will arrange for transfer to [facility] Subjective Date/time seen: 07/26/21 15:20 HE FEELS OKAY TODAY NO MORE CHEST PAIN, he underwent cardiac catheterization revealing subtotal LAD occlusion, with 99% disease involving the LAD and large septal branch Exam Narrative: Exam Narrative: Const: General: no acute distress, alert and awake Orientation/consciousness: patient oriented x3, obese. HENMT: Head: normocephalic and atraumatic Ears: hearing grossly normal bilaterally and external ears normal Face and sinus: face symmetric Mouth: Yes Normal oral and palatal mucosa present Eyes: Pupils: Equal, round and reactive pupils present EOM: EOMs intact bilaterally Neck: Neck: full ROM, trachea midline and no JVD Thyroid: thyroid normal Chest: Chest palpation & inspection: normal inspection of the chest Resp: Effort & Inspection: normal respiratory effort Auscultation: clear to auscultation bilaterally Cardio: Jugular venous distension: no JVD Rate: regular rate Rhythm: regular rhythm Heart sounds: S1 normal heart sound present and S2 normal heart sound present, With 1/6 intensity systolic murmur. GI: Inspection: normal to inspection GI Palp: Yes Soft to palpation Percussion: Yes normal to percussion Auscultation: normal bowel sounds : General: Yes no CVA tenderness Back/Spine/Pelvis: Back: no CVA tenderness Skin: General skin exam: normal color Rashes: no rashes Neuro: General: patient oriented x3 and CN's II-XI intact bilaterally Cranial nerves: Yes Equ
[2021-03-14 15:25] LABS: Activated Clotting Time 142 sec (74-137)
--- NOTE | 2021-03-14 15:25 | P.PCNCC_ITS ---
Cardiac Cath Procedure Note Date of procedure:: 03/14/21 Performing physician:: Kameron Dial MD Procedure: 1. Left heart catheterization, selective coronary angiogram. 2. Left ventricular angiogram. 3. Conscious sedation. Abseiling Instructor: Dr. Kameron Dial Complications: None. Sedation: Conscious sedation, local anesthesia, using 1 mg of Versed said, 25 mcg of fentanyl, and using 1% lidocaine for local anesthesia. starting time is 3:01 p.m. ending time is 3:16 p.m. History: 51 years old gentleman with history of diabetes mellitus hypertension dyslipidemia came to the hospital because of chest pain noted to have elevated troponin with non ST-elevation myocardial infarction, after further stabilizat ion brought to the salvage laborer for elective cardiac catheterization Technique: After informed consent was obtained from patient, was brought to the salvage laborer, put in the salvage laborer table, prepped and draped in usual sterile fashion. Five Moroccan sheath was inserted into the right common femoral artery, through the sheath 5 Moroccan JL4 catheter inserted, advanced to the left coronary artery, left coronary artery angiogram was obtained. The catheter was exchanged over guidewire into a 5 Moroccan JR4 catheter, advanced to the right coronary artery, right coronary artery angiogram was obtained. The catheter then was exchanged over guidewire into this 5 Moroccan pigtail catheter, advanced to left ventricle, left ventricular angiogram was obtained. The catheter then was pulled, the sheath was pulled applying manual pressure for arterial hemostasis. Patient tolerated the procedure no complication, taken from the salvage laborer to his room in stable condition stable vital signs. Hemodynamics: aortic pressure 144/60 . LV pressure 144/04 with LVEDP of 23 mmHg Angiographic findings: Left main: Medium size artery no significant disease or stenosis. Lad medium size artery showed mid LAD subtotal occlusion with 99% disease at the level of the bifurcation with LAD and septal large branch, with small aneurysmal dilatation right before the lesion Left circumflex artery, medium size artery, no significant disease or stenosis. RCA: Dominant vessel, showed no significant disease or stenosis LV: Normal size left ventricle with normal left ventricular systolic function. Summary: single-vessel LAD disease with bifurcation lesion, and normal left ventricular systolic function Recommendation: with high risk lesion will consider bypass surgery with GONZALES to LAD or [facility], will arrange for transfer to [facility]
[2021-03-14 16:45] LABS: Activated Clotting Time 125 sec (74-137)
[2021-03-14 18:39] LABS: EDCOVIDSCREEN Negative (Negative)
[2021-03-14 18:51] LABS: Partial Thromboplastin Time 23.3 SECONDS (22.3-36.8)
--- NOTE | 2021-03-14 21:12 | PC.NURSE ---
Cardiopulmonary Rehab Services flyer was given to patient in cardiac admission folder.
[2021-03-14] MEDS: ROSUVASTATIN 10 MG TABLET 40 MG PO (21:24)
[2021-03-14] MEDS: INSULIN GLARGINE (*BKC) 100 UNITS/ML 15 UNITS SUB-Q (21:24)
[2021-03-14] MEDS: ACETAMINOPHEN 325 MG TABLET 650 MG PO (23:20)
[2021-03-15] VITALS: BP 162/78; PULSE 90; PULSE 91; RESP 20; TEMP 36.6; O2SAT 98
[2021-03-15 00:56] VITALS: PULSE 79
[2021-03-15] MEDS: NITROGLYCERIN OINTMENT 1 INCH DOSE TRANSDERM (00:56)
[2021-03-15] MEDS: METOPROLOL TARTRATE 25 MG TABLET PO (00:56)
--- NOTE | 2021-03-15 06:43 | P.TS_ITS ---
Transfer Discharge Sum: Prov Provider Date of admission: 03/12/21 05:30 Primary care physician: Prosper Cavazos MD Admitting clinician: Mar Spears DO Consults: 03/12/21 Consult to Physician Routine Comment: Consulting Provider: Anival Lema Reason for consultation: NSTEMI Has provider been notified: Yes DS: Admitting Diagnosis Admitting Diagnosis NSTEMI DS: Discharge Diagnosis Discharge Diagnosis (1) Non-ST elevation IL (NSTEMI): Code(s): I21.4 - Non-ST elevation (NSTEMI) myocardial infarction Status: Acute Assessment and Plan: * elevated troponin at 0.513>0.528>0.457 * Heparin gtt until cardiac catheterization today with will consider Plavix following left cardiac catheterization * Cardiology consulted, recommendations appreciated * Continue ASA, BB, NTG * start rosuvastatin 40 mg daily * LDL at 161 * Tele monitoring Cardiac cath found a lesion in the LAD in the bifurcation with normal left ventricular systolic function. Transfer patient to [facility] for high risk intervention including possible CABG (2) Hypertension: Code(s): I10 - Essential (primary) hypertension Status: Acute Assessment and Plan: * Improved * patient noncompliance * continue metoprolol and nitro * cardiology consulted * vital signs is ordered * will adjust medication as needed (3) Hyperglycemia: Code(s): R73.9 - Hyperglycemia, unspecified Status: Acute Assessment and Plan: * Hx of DM type II * glucose 214 n labs * patient noncompliance * Hgb A1c 11.2 * continue SSI, AccuCheck, increase sliding scale from moderate to high * diabetic Education * will adjust medication as needed * continue diabetic diet Transfer Discharge Sum: Med Medications Active and Home Medications: Home Medications No Home Medications 03/11/21 [History Confirmed 03/11/21] Transfer Discharge Sum: Hosp Hospital Course Hospital course: Ja Mendoza is a 51 year old male with a past medical diabetes and hypertension who presented to the ED with chest pressure and pain. Patient had elevated troponins with no ST elevation on the EKG. Patient was taken to the labor crew supervisor where they found a lesion on the LAD bifurcation. ECHO showed EF of 62% with mild hypokinesis of the apex and anterior left ventricular chavez. It was determined that the patient needs a high risk procedure. Patient was transferred to [place]. At time of examination patient denied chest pain, shortness of breath, nausea, vomiting, sweats, chills, fevers, or radiating pain. Time Spent with Patient Time attestation: Total time spent providing and/or coordinating transfer services: 42 minutes Exam Const: General: cooperative, healthy appearing, comfortable, no acute distress, well developed, alert, awake and Physically active Nutritional Appearance: obese and overweight Orientation/consciousness: oriented to person, oriented to place, oriented to time and patient oriented x3 HENMT: Head: normocephalic and atraumatic Ears: hearing grossly normal bilaterally and external ears normal Face and sinus: face symmetric Mouth: Yes Normal oral and palatal mucosa present Eyes: Pupils: Equal, round and reactive pupils present EOM: EOMs intact bilaterally Neck: Neck: full ROM, trachea midline and no JVD Thyroid: thyroid normal Chest: Chest palpation & inspection: normal inspe
--- NOTE | 2021-03-15 06:43 | PM.TDS ---
Transfer Discharge Sum: Prov Provider Date of admission: 03/12/21 05:30 Primary care physician: Prosper Cavazos MD Admitting clinician: Mar Spears DO Consults: 03/12/21 Consult to Physician Routine Comment: Consulting Provider: Anival Lema Reason for consultation: NSTEMI Has provider been notified: Yes DS: Admitting Diagnosis Admitting Diagnosis NSTEMI DS: Discharge Diagnosis Discharge Diagnosis (1) Non-ST elevation AL (NSTEMI): Code(s): I21.4 - Non-ST elevation (NSTEMI) myocardial infarction Status: Acute Assessment and Plan: elevated troponin at 0.513>0.528>0.457 Heparin gtt until cardiac catheterization today with will consider Plavix following left cardiac catheterization Cardiology consulted, recommendations appreciated Continue ASA, BB, NTG start rosuvastatin 40 mg daily LDL at 161 Tele monitoring Cardiac cath found a lesion in the LAD in the bifurcation with normal left ventricular systolic function. Transfer patient to [facility] for high risk intervention including possible CABG (2) Hypertension: Code(s): I10 - Essential (primary) hypertension Status: Acute Assessment and Plan: Improved patient noncompliance continue metoprolol and nitro cardiology consulted vital signs is ordered will adjust medication as needed (3) Hyperglycemia: Code(s): R73.9 - Hyperglycemia, unspecified Status: Acute Assessment and Plan: Hx of DM type II glucose 214 n labs patient noncompliance Hgb A1c 11.2 continue SSI, AccuCheck, increase sliding scale from moderate to high diabetic Education will adjust medication as needed continue diabetic diet Transfer Discharge Sum: Med Medications Active and Home Medications: Home Medications No Home Medications 03/11/21 [History Confirmed 03/11/21] Transfer Discharge Sum: Hosp Hospital Course Hospital course: Ja Mendoza is a 51 year old male with a past medical diabetes and hypertension who presented to the ED with chest pressure and pain. Patient had elevated troponins with no ST elevation on the EKG. Patient was taken to the wharf laborer where they found a lesion on the LAD bifurcation. ECHO showed EF of 62% with mild hypokinesis of the apex and anterior left ventricular chavez. It was determined that the patient needs a high risk procedure. Patient was transferred to [place]. At time of examination patient denied chest pain, shortness of breath, nausea, vomiting, sweats, chills, fevers, or radiating pain. Time Spent with Patient Time attestation: Total time spent providing and/or coordinating transfer services: 42 minutes Exam Const: General: cooperative, healthy appearing, comfortable, no acute distress, well developed, alert, awake and Physically active Nutritional Appearance: obese and overweight Orientation/consciousness: oriented to person, oriented to place, oriented to time and patient oriented x3 HENMT: Head: normocephalic and atraumatic Ears: hearing grossly normal bilaterally and external ears normal Face and sinus: face symmetric Mouth: Yes Normal oral and palatal mucosa present Eyes: Pupils: Equal, round and reactive pupils present EOM: EOMs intact bilaterally Neck: Neck: full ROM, trachea midline and no JVD Thyroid: thyroid normal Chest: Chest palpation & inspection: normal inspection of the chest Resp: Effort & Inspection: normal respiratory effort Auscultation: clear to auscultation bilaterally Cardio: Jugular venous distension: no JVD Rate: regular rate Rhythm: regular rhythm Heart sounds: S1 normal heart sound present and S2 normal heart sound present Peripheral pulses: Peripheral pulses 2+ throughout GI: Inspection: normal to inspection Auscultation: normal bowel sounds : General: Yes no CVA tenderness Back/Spine/Pelvis: Back: no CVA tenderness Skin: General skin exam: normal color
== END 2021-03-15 01:41 | disposition short-term general hospital (02) | DRG 282 ==
LOC: ANHED 03-12 03:40 → ANHIMU 03-12 05:52
PROVIDERS: Emergency Medicine; Internal Medicine Cardiovascular Disease; Nurse Practitioner; Nurse Practitioner Adult Health; Specialist; Admitting Provider Internal Medicine; Emergency Provider General Practice; PCP Family Medicine; Visit Provider Internal Medicine
PROC: 4A023N7 Measurement of Cardiac Sampling and Pressure, Left Heart, Percutaneous Approach (ICD-10-PCS; CPT 93452; principal; 2021-03-14 14:00)
DX: I21.4 Non-ST elevation (NSTEMI) myocardial infarction (principal); I25.10 Atherosclerotic heart disease of native coronary artery without angina pectoris; E11.65 Type 2 diabetes mellitus with hyperglycemia; E86.0 Dehydration; I10 Essential (primary) hypertension; Z87.891 Personal history of nicotine dependence; Z91.19 Patient's noncompliance with other medical treatment and regimen; Z91.14 Patient's other noncompliance with medication regimen; E78.5 Hyperlipidemia, unspecified; Z20.822 Contact with and (suspected) exposure to COVID-19
CPT/HCPCS: 36415; 71046; 80048; 80053; 80061; 82948; 83036; 83735; 84443; 84484; 85025; 85610; 85730; 87426; 93005; 93458; 96374; 99291; A9270; C1887; C1894; C8929; C9803; J1644; J1815; J2250; J3010; J7030; J7040; Q9957

== ENCOUNTER 2021-06-30 16:30 | Outpatient (RCR) | payer BC, SELFPAY ==
[2021-04-22 15:29] VITALS: BP 122/75; PULSE 80; RESP 16; O2SAT 98
--- NOTE | 2021-05-25 15:17 | PCCPR ---
Absent- in the ER.
[2021-06-02 16:41] LABS: Glucose Point of Care 109 mg/dl (65-105)
[2021-06-02 17:31] LABS: Glucose Point of Care 119 mg/dl (65-105)
--- NOTE | 2021-06-20 15:45 | PCCPR ---
Ja absent today, not feeling well.
== END 2021-06-30 17:56 | disposition home or self-care (01) ==
LOC: ANHCPREHAB 16:30
PROVIDERS: PCP Family Medicine; Visit Provider Internal Medicine
DX: Z95.5 Presence of coronary angioplasty implant and graft (principal)
CPT/HCPCS: 93798

== ENCOUNTER → 2023-07-27 13:49 | Outpatient (CLI) | payer BC, SELFPAY ==
--- NOTE | ~2023-07-27 | CT_ITS ---
Non-contrast Head CT History: Headache Technique: Axial non-contrast imaging of the brain was performed. Dose reduction technique was used on this scan by utilizing automated exposure control and iterative reconstruction technique. The dose -length product (DLP) was 599.57 mGy-cm. Findings: There is no evidence of intracranial hemorrhage, mass lesion, or acute infarct. Brain par enchyma appears normal. The ventricles and subarachnoid spaces are normal in size. The calvarium ap pears normal. The visualized paranasal sinuses and mastoid air cells are clear. Impression: No significant abnormality seen. Reviewed, dictated and finalized at location . OGRAPHY MANAGER Impression: No significant abnormality seen.
== END ==
PROVIDERS: PCP Nurse Practitioner Adult Health; Visit Provider Nurse Practitioner Adult Health
DX: M54.2 Cervicalgia (principal); G44.89 Other headache syndrome; H92.01 Otalgia, right ear
CPT/HCPCS: 70450

== ENCOUNTER 2024-07-14 00:09 | Day surgery (SDC) | payer OTHER, SELFPAY ==
[2024-06-30 11:15] VITALS: BMI 38.4
[2024-07-14 07:25] VITALS: BP 116/69; PULSE 84; RESP 18; TEMP 36.1; O2SAT 100
[2024-07-14] MEDS: LACTATED RINGERS 1,000 ML 150 ML IV CONT (07:46)
[2024-07-14 07:49] LABS: Glucose Point of Care 91 mg/dl (65-105)
--- NOTE | 2024-07-14 08:03 | PM.IMHP ---
H&P: HPI History of Present Illness Date/Time: 07/14/24 08:03 Chief Complaint: screening colonoscopy Narrative: This is the patient's first colonoscopy. There are no GI symptoms and there is no family history of colorectal cancer. Review of Systems Review of Systems: All systems reviewed & are unremarkable except as noted in HPI and below PMFSH Past Medical History Medical History Diabetes mellitus Surgical History Surgical History No pertinent past surgical history Family History Family History Father Hypertension Mother Family history of malignant neoplasm Social History Social History Smoking packs per day: 0.04 Smoking cigarettes per day: 0.8 Years smoked: 20 Smoking pack-years: 0.80 Smoking status: Former smoker Tobacco type: cigarettes Second hand tobacco smoke exposure: No Additional smoking assessment comments: states was a smoker when he drank at times with friends socially Alcohol intake: never Substance use: never Substance use type: does not use Living arrangements: with family Spiritual care concerns: No Meds Home Medications and Allergies Home Medications Medication Instructions Recorded Confirmed Type aspirin 81 mg tablet 81 mg PO DAILY 04/22/21 06/30/24 History atorvastatin 80 mg tablet 80 mg PO HS 04/22/21 06/30/24 History insulin glargine 100 unit/mL 30 unit subcut HS 04/22/21 06/30/24 History subcutaneous cartridge metoprolol succinate 50 mg 50 mg PO DAILY 04/22/21 06/30/24 History tablet,extended release 24 hr spironolactone 25 mg tablet 25 mg PO DAILY 04/22/21 06/30/24 History empagliflozin 10 mg tablet 10 mg PO DAILY 05/02/21 06/30/24 History (Jardiance) metformin 500 mg tablet 500 mg PO BID 05/02/21 06/30/24 History semaglutide 0.25 mg or 0.5 mg (2 0.25 mg subcut WEEKLY 05/02/21 07/14/24 History mg/1.5 mL) subcutaneous pen injector (Ozempic) famotidine 40 mg tablet 40 mg PO DAILY 06/30/24 06/30/24 History naproxen 500 mg tablet 500 mg PO DAILY 06/30/24 06/30/24 History sacubitril 49 mg-valsartan 51 mg 1 tablet PO DAILY 06/30/24 06/30/24 History tablet (Entresto) Allergies Allergy/AdvReac Type Severity Reaction Status Date / Time No Known Allergies Allergy Mild Verified 07/14/24 07:22 Vital Signs Vital Signs - 24 hr 07/14/24 07:25 Temperature 97 F L Pulse Rate 84 Respiratory Rate 18 Blood Pressure 116/69 Pulse Oximetry 100 Oxygen Delivery Room Air Exam Const: General: cooperative and healthy appearing Resp: Effort & Inspection: normal respiratory effort and able to speak in complete sentences Auscultation: clear to auscultation bilaterally Cardio: Rate: regular rate Rhythm: regular rhythm GI: Inspection: normal to inspection GI Palp: No No hepatosplenomegaly present Auscultation: normal bowel sounds Rectal Exam: deferred Skin: General skin exam: normal color Psych: Appearance: grossly normal Mental Status: mental status grossly normal Assessment and Plan Assessment and plan (1) Screening for malignant neoplasm of colon: Code(s): Z12.11 - Encounter for screening for malignant neoplasm of colon Status: Acute Assessment and Plan: The patient is deemed a good candidate for the procedure. Consent signed. Will proceed.
--- NOTE | 2024-07-14 08:25 | P.PNAN_ITS ---
Anes - Initial Pre Proc Eval Procedure: Operation Date: 07/14/24 08:30 Proposed Procedures p Colonoscopy - Amauri Reyes MD Date/Time: 07/14/24 08:25 Surgeon: Amauri Reyes MD Pre Op Diagnosis: Rectal & Anal Hem Patient Data Age: 54 Gender: M Height: 1.75 m Weight: 120.1 kg Last Vital Signs Temp 97 F L 07/14/24 07:25 Pulse 84 07/14/24 07:25 Resp 18 07/14/24 07:25 BP 116/69 07/14/24 07:25 Pulse Ox 100 07/14/24 07:25 O2 Del Method Room Air 07/14/24 07:25 Allergies Allergy/AdvReac Type Severity Reaction Status Date / Time No Known Allergies Allergy Mild Verified 07/14/24 07:22 Home Medications Medication Instructions Recorded Confirmed Type aspirin 81 mg tablet 81 mg PO DAILY 04/22/21 06/30/24 History atorvastatin 80 mg tablet 80 mg PO HS 04/22/21 06/30/24 History insulin glargine 100 unit/mL 30 unit subcut HS 04/22/21 06/30/24 History subcutaneous cartridge metoprolol succinate 50 mg 50 mg PO DAILY 04/22/21 06/30/24 History tablet,extended release 24 hr spironolactone 25 mg tablet 25 mg PO DAILY 04/22/21 06/30/24 History empagliflozin 10 mg tablet 10 mg PO DAILY 05/02/21 06/30/24 History (Jardiance) metformin 500 mg tablet 500 mg PO BID 05/02/21 06/30/24 History semaglutide 0.25 mg or 0.5 mg (2 0.25 mg subcut WEEKLY 05/02/21 07/14/24 History mg/1.5 mL) subcutaneous pen injector (Ozempic) famotidine 40 mg tablet 40 mg PO DAILY 06/30/24 06/30/24 History naproxen 500 mg tablet 500 mg PO DAILY 06/30/24 06/30/24 History sacubitril 49 mg-valsartan 51 mg 1 tablet PO DAILY 06/30/24 06/30/24 History tablet (Entresto) Laboratory Tests 07/14/24 07:38 POC Capillary Glucose 91 mg/dl (65-105) Patient hx anesthesia problems: none Family hx anesthesia problems: none Results Review: All pre-operative results and documents have been reviewed as part of the pre- operative evaluation. [facility] Past Medical History Medical History Diabetes mellitus Surgical History Surgical History No pertinent past surgical history Family History Family History Father Hypertension Mother Family history of malignant neoplasm Social History Social History Smoking packs per day: 0.04 Smoking cigarettes per day: 0.8 Years smoked: 20 Smoking pack-years: 0.80 Smoking status: Former smoker Tobacco type: cigarettes Second hand tobacco smoke exposure: No Additional smoking assessment comments: states was a smoker when he drank at times with friends socially Alcohol intake: never Substance use: never Substance use type: does not use Living arrangements: with family Spiritual care concerns: No Anes - Eval Final PreProcedure Day of Procedure 07/14/24 08:25 Patient weight: morbidly obese Heart: regular rate and rhythm Lungs: clear to auscultation Airway: Mallampati scale class III Neurological: alert and oriented Last oral intake: >/= 8 hours ASA classification: III Emergent: no Anesthetic plan: proceed Anesthesia type and monitoring: general GIVS and standard monitoring Results Review: All pre-operative results and documents have been reviewed as part of the pre- operative evaluation. Informed Consent: The patient's anesthetic plan and its attendant risks and benefits were discussed with the patient/family/POA. Questions were solicited and answers provided to the satisfaction of the patient/family/POA.
[2024-07-14 09:09] VITALS: BP 107/62; PULSE 86; RESP 18; O2SAT 97
[2024-07-14 09:18] LABS: Glucose Point of Care 80 mg/dl (65-105)
[2024-07-14 09:19] VITALS: BP 113/81; PULSE 92; RESP 15; O2SAT 100
[2024-07-14 09:29] VITALS: BP 130/85; PULSE 83; RESP 14; O2SAT 100
== END 2024-07-14 09:39 | disposition home or self-care (01) ==
PROVIDERS: PCP Family Medicine; Visit Provider Internal Medicine Gastroenterology
PROC: 0DJD8ZZ Inspection of Lower Intestinal Tract, Via Natural or Artificial Opening Endoscopic (ICD-10-PCS; CPT 45378; principal; 2024-07-14 08:30)
DX: Z12.11 Encounter for screening for malignant neoplasm of colon (principal); K63.5 Polyp of colon; E11.9 Type 2 diabetes mellitus without complications; Z87.891 Personal history of nicotine dependence; Z79.82 Long term (current) use of aspirin; Z79.84 Long term (current) use of oral hypoglycemic drugs; Z79.85 Long-term (current) use of injectable non-insulin antidiabetic drugs; E66.01 Morbid (severe) obesity due to excess calories; Z68.39 Body mass index [BMI] 39.0-39.9, adult
CPT/HCPCS: 45385; 82948; 88305; J2003; J2371; J2704; J7120